=== PATIENT | female | born 1995 | race Hispanic/Latino ===

== ENCOUNTER 2017-12-22 13:34 | Outpatient (CLI) | payer MEDICAID | END 2017-12-22 13:35 | disposition home or self-care (01) | LOC: BICULT 13:34 | PROVIDERS: ATTEND Nurse Practitioner Women's Health | DX: R10.2 Pelvic and perineal pain (principal); R58 Hemorrhage, not elsewhere classified | CPT/HCPCS: 76856 ==

== ENCOUNTER 2018-06-18 22:06 | Emergency (ER) | payer MEDICAID, SELFPAY ==
[2018-06-18] MEDS ORDERED: Acetaminophen 500 MG TAB ONE (22:26)
[2018-06-18 22:41] LABS: #Basophils 0.1 thou/uL (0.0-0.2); #Eosinphils 0.2 thou/uL (0.0-0.7); #Lymphocytes 2.7 thou/uL (1.20-3.40); #Monocytes 0.6 thou/uL (0.11-0.59); %Basophils 0.6 % (0.0-1.0); %Eosinophils 2.1 % (0.0-10.0); %Lymphocytes 28.5 % (21.0-51.0); %Monocytes 6.4 % (0.0-10.0); %Neutrophils 62.5 % (42.0-75.0); Hemoglobin 13.3 g/dL (12.0-16.0); Mean Corpuscular HGB CONC 33.6 g/dL (32.0-36.0); Mean Corpuscular Hemoglobin 29.4 pg (27.0-31.0); Mean Corpuscular Volume 87.6 fL (78.0-98.0); Mean Platelet Volume 6.5 fL (7.4-10.4); Platelet Count 359 thou/uL (130-400); RBC Distribution Width 13.4 % (11.5-14.5); Red Blood Cell (RBC) Count 4.52 mill/uL (4.20-5.40); White Blood Cell (WBC) Count 9.6 thou/uL (4.8-10.8)
[2018-06-18 23:07] LABS: Bilirubin Negative (Negative); Blood, Urine Trace (Negative); Clarity CLEAR (Clear); Glucose, Urine (Dipstick) Negative (Negative); Leukocyte Trace (Negative); Nitrite Negative (Negative); Protein, Urine (Dipstick) Negative (Neg-Trace); Specific Gravity, Urine 1.017 (1.002-1.036)
[2018-06-18 23:09] LABS: Bacteria/HPF Rare-Few HPF (None Seen); Hyaline Casts/LPF 0-3 HYALINE CAST LPF (0-3 Hyaline); Pathc Cast-AUWi Flag 0.29 (0-2.49); RBC/HPF 0-3 HPF (0-3)
--- NOTE | 2018-06-19 00:08 | ULT ---
PELVIC ULTRASOUND: HISTORY: Positive hCG. Cramping. TECHNIQUE: Multiple longitudinal and transverse images of an intrauterine are obtained using Multi-Her tz curvilinear endovaginal transducers. FINDINGS: Real-time, color-flow, and spectral wave-form Doppler analysis demonstrates a viable intrauterine pre gnancy. The uterus measures 7.9 x 5.0 x 5.6 cm. There is a gestational sac and pole seen. Cr own-rump length measures 8 mm, giving a gestational age of 6 weeks 5 days. Cardiac activity is confi rmed, measuring 126 beats per minute. The uterus is retroverted. No definite evidence of subchorion ic hemorrhage seen. Both ovaries are visualized with good flood flow. The right ovary measures 2.9 x 1.5 x 1.9 cm, and the ovary 3.6 x 2.0 x 3.2 cm IMPRESSION: A viable intrauterine with an estimated gestational age of 6 weeks 5 days and an estimated date of delivery of 02/06/2019. POS: KAYLAH
== END 2018-06-19 00:08 | disposition home or self-care (01) ==
LOC: ERS 22:06
DX: O99.89 Other specified diseases and conditions complicating pregnancy, childbirth and the puerperium (principal); R10.31 Right lower quadrant pain; Z3A.01 Less than 8 weeks gestation of pregnancy
CPT/HCPCS: 36415; 76856; 81003; 81015; 84702; 85025

== ENCOUNTER 2019-01-02 15:48 | Inpatient (IN) | payer MEDICAID, OTHER ==
[~2019-01-02 15:48] MED LIST: Bupivacaine HCl 0.5%/Epinephrine 1:200,000/PF 30 ml Vial ONE; Terbutaline Sulfate 1 MG/ML VIAL ONE
--- NOTE | 2019-01-02 16:03 | PDOC.LDHP ---
Labor and Delivery H&P Chief complaint: other (high blood pressure) HPI: 23 yo G1 at 35.0 weeks by 6.5 wk sono sent over from clinic for elevated blood pressures. Patient has history of chronic HTN saying her BPs usually range in 140s when she checks them. She does not take antihypertensives. At clinic today measured BPs were 170-180. She denies NIELSON, chest pain, lower extremity edema. Sometimes feels SOB. Denies VB/VD/LOF. Reports dec FM past few days. Current gestational age (weeks): 35 (35.0) Due date: 02/06/19 Dating criteria: first trimester ultrasound Grav: 1 Para: 0 Current complications: hypertension Past Medical History: likely undiagnosed cHTN Current medications: pre-emma vitamins Previous surgical history: none Allergies/Adverse Reactions: Allergies Allergy/AdvReac Type Severity Reaction Status Date / Time No Known Allergies Allergy Unverified 01/02/19 16:57 Social history: none - Physical Exam Abnormal vital signs: BPs >160/>90 General: NAD Heart: RRR Lungs: CTAB Abdomen: gravid - OB Labs Blood type: O RH: negative Antibody Screen: negative HIV: negative RPR: negative HEPSAg: negative GBS: unknown Rubella: immune Additional Labs: A1c 4.9 Quad screen negative - Plan Plan: admit to L&D -: induced hypertension -Severe range BPs in office and here -Labetalol 30 IM x1 now -start on procardia for cHTN -CBC, CMP, uric acid, urine pr/cr to r/o PreE -Labs from 08/2018 show baseline urine pr/cr of 0.14 -pending FHT -order BPP -monitor for severe range pressures -35.0 weeks -steroids x1 now in case of urgent delivery -two doses GBS unknown -will obtain GBS swab -if delivery indicated before results return, will start PCN ppx Discussed with Dr. Alexander
[2019-01-02 16:37] VITALS: BMI 52.2
[2019-01-02 16:40] LABS: #Eosinphils 0.1 thou/uL (0.0-0.7); #Lymphocytes 2.1 thou/uL (1.20-3.40); #Monocytes 0.6 thou/uL (0.11-0.59); #Neutrophils 8.4 thou/uL (1.40-6.50); %Eosinophils 0.9 % (0.0-10.0); %Lymphocytes 18.4 % (21.0-51.0); %Monocytes 5.4 % (0.0-10.0); %Neutrophils 75.3 % (42.0-75.0); Hemoglobin 12.3 g/dL (12.0-16.0); Mean Corpuscular Hemoglobin 30.5 pg (27.0-31.0); Mean Corpuscular Volume 87.1 fL (78.0-98.0); Platelet Count 276 thou/uL (130-400); Red Blood Cell (RBC) Count 4.03 mill/uL (4.20-5.40); White Blood Cell (WBC) Count 11.2 thou/uL (4.8-10.8)
[2019-01-02] MEDS ORDERED: Labetalol HCl 100 MG/20 ML VIAL SLOW IVP SCH (17:00)
[2019-01-02 17:06] LABS: ALT (SGPT) 8 U/L (8-55); AST (SGOT) 18 U/L (5-34); Albumin 3.3 g/dL (3.5-5.0); Alkaline Phosphatase 159 U/L (40-150); Anion Gap 12 mmol/L (10-20); BUN (Urea Nitrogen) 5 mg/dL (7.0-18.7); Bilirubin, Total 0.3 mg/dL (0.2-1.2); Calc. Creatinine Clearance 322 mL/min (70-130); Calcium 8.9 mg/dL (7.8-10.44); Carbon Dioxide 21 mmol/L (22-29); Chloride 109 mmol/L (98-107); Estimated GFR-MDRD Greater than 90; Globulin 3.3 g/dL (2.4-3.5); Glucose 73 mg/dL (70-105); Potassium 3.8 mmol/L (3.5-5.1); Protein, Total 6.6 g/dL (6.0-8.3); Sodium 138 mmol/L (136-145)
[2019-01-02] MEDS: Lactated Ringer's 1,000 ML IV SCH (17:10)
[2019-01-02] MEDS: Betamet Acet/Betamet Na Ph 30 MG/5 ML VIAL IM SCH (17:23)
[2019-01-02 17:36] LABS: Creatinine, Urine 20.88 mg/dL (47-110)
--- NOTE | 2019-01-02 17:50 | ULT ---
Limited OB ultrasound and biophysical profile. Multiple longitudinal and transverse images of an intrauterine is obtained using multIhertz curvilinear transducer. Real-time and color flow and spectral waveform Doppler analysis used to evaluate the fetus. Images demonstrate a viable intrauterine with the fetus in a cephalic presentation. The [place] is anterior. Cardiac activity is seen measuring 140 bpm. Biometrics: Biparietal diameter equals 81 mm equals 32 weeks 4 days Head circumference equals 309 mm equals 34 weeks 3 days Abdominal circumference equals 300 mm equals 34 weeks 0 days Femur length equals 66 mm equals 34 weeks 2 days Composite age equals 33 weeks 6 days with an estimated of delivery of 02/14/2019. Amniotic fluid index measures 11.8 cm. Biophysical profile: tone equals 2 breathing equals 2 movement equals 2 Amniotic fluid volume equals 2 Composite equals 8 out of 8. [place] IMPRESSION: Viable intrauterine with biophysical profile measuring 8 out of 8. Transcribed Date/Time: 01/02/2019 6:31 PM
--- NOTE | 2019-01-02 17:51 | ULT ---
Please see accompanying limited OB ultrasound dictation for biophysical profile. Transcribed Date/Time: 01/02/2019 6:32 PM
[2019-01-02] MEDS ORDERED: Ondansetron PF 4 MG/2 ML Vial IVP PRN (18:07)
[2019-01-02] MEDS ORDERED: NIFEdipine XL 30 MG TAB PO SCH (18:15)
[2019-01-02] MEDS ORDERED: hydrALAZINE 20 MG/ML VIAL SLOW IVP SCH (20:45)
--- NOTE | 2019-01-02 21:36 | PDOC.EVN ---
Event Note - Event Note Event Note: PT is a 23yo female with a dx of chtn early in this who presented with elevated blood pressures. Labs have all been negative. By history pt reports checking blood pressures at the store every couple weeks and they have always been in the 140s-150s systolic. Pt has no symptoms. DTR's are normal. BP have been repeatedly severe. PT has been given procardia xl 30mg , labetolol 20mg iv, and now hydralizine 10mg iv x1. PT given bmtz x1. IF blood pressures become severe again will start magnesium during 24hr urine collection. if difficult to control bp will start induction of labor.
[2019-01-02] MEDS ORDERED: Calcium Gluconate 4.6 MEQ in Sodium Chloride 0.9% 100 ML IVPB PRN (22:24)
[2019-01-02] MEDS ORDERED: Magnesium Sulfate 20 GM/WATER 500 ML BAG IVPB SCH (22:30)
[2019-01-03] MEDS ORDERED: hydrALAZINE 20 MG/ML VIAL SLOW IVP SCH ×2 (00:30→01:00)
[2019-01-03] MEDS ORDERED: Misoprostol 100 MCG TAB VAG SCH (03:00)
[2019-01-03] MEDS: Labetalol HCl 100 MG/20 ML VIAL SLOW IVP PRN ×2 (04:02→10:48)
[2019-01-03] MEDS ORDERED: Penicillin G Potassium 5 MILL.UNITS in Sodium Chloride 0.9% 100 ML IVPB SCH (04:15)
[2019-01-03] MEDS ORDERED: Fentanyl 4 mcg/Bup 0.1% Cadd 100 ML ONE ×3 (04:24→18:56)
[2019-01-03] MEDS ORDERED: diphenhydrAMINE 50 MG/ML VIAL IVP PRN (05:14)
[2019-01-03] MEDS ORDERED: Eucerin (Mineral Oil/Petrolatum,White) 30 gm Jar TOP PRN (05:14)
[2019-01-03] MEDS ORDERED: Ondansetron PF 4 MG/2 ML Vial IVP PRN (05:14)
[2019-01-03] MEDS ORDERED: ePHEDrine/0.9% NaCl/PF SYRINGE 50 mg/10 ml SLOW IVP PRN (05:14)
[2019-01-03] MEDS ORDERED: Promethazine HCl 25 MG/ML VIAL IM PRN (05:14)
[2019-01-03] MEDS ORDERED: Lactated Ringer's 500 ML IV PRN (05:14)
[2019-01-03] MEDS ORDERED: Naloxone HCl 0.4 mg/ml Vial IVP PRN ×2 (05:14)
[2019-01-03] MEDS ORDERED: Acetaminophen 325 MG TAB PO PRN (05:14)
[2019-01-03] MEDS ORDERED: Communication Order-Pharmacy FS SCH (05:15)
[2019-01-03] MEDS: Lactated Ringer's 1,000 ML IV SCH (05:27)
--- NOTE | 2019-01-03 07:23 | PDOC.EVN ---
Event Note - Event Note Event Note: Pt persisted in severe range pressures. controlled now with labetolol iv prn and procardia xl 30mg po qday. Pt undergoing iol with cytotec. She srom over night, currently is 3/100/-1 station. BP 130-140s/70s-80s this morning HR 80s, sat 100% RA. PE: NAD, with epidural. lungs clear. DTR brisk. A/P CHTN with or with our si preeclampsia 24hour urine protein pending. IOL with cytotec now SROM with epidural. Continue active management. PCN for GBS prophylaxis in place. Dr Mckeon is the on coming MD.
[2019-01-03] MEDS: Magnesium Sulfate 20 gm/500 ml 20 GM/500 ML BAG IVPB SCH ×2 (07:33→17:44)
[2019-01-03] MEDS: Pen G 2.5 MILL.UNITS/50 ML BAG IVPB SCH ×4 (08:36→21:43)
--- NOTE | 2019-01-03 08:55 | PDOC.EVN ---
Event Note - Event Note Event Note: 23 yo LAF at 35 weeks with chronic HTN, now SROM with active UC pattern. Received several doses of labetalol and hydralizine. Mg started. 1st dose steroids given. Labs were normal on admit. BPs now 140/70's. Last exam was 3 cm. Plan: watch labor progress and BPs, cont. Mg, pitocin augmentation if required.
--- NOTE | 2019-01-03 09:11 | PDOC.LDPN ---
Labor & Delivery Progress Note - Subjective Subjective: comfortable (IOL of preeclampsia superimposed on cHTN. She has been induced with cytotec X1 and has had adequate contractions since. Her BPs have been well controlled since received Procardia and several doses of Hydralazine and Labetalol. She has received IV magnesium and has been diuresing well, between 80-100 mL/hr. She has received steroids. She has received Pen G due to and unknown GBS status. She has no complaints at this time. She SROM'd overnight and now has IUPC in place as well as epidural. Denies chest pain, dyspnea, fever, chills, pain. ) - Objective Vital signs reviewed and normal: yes General: NAD (Lungs: CTAB, no wheezes, rales, rhonchi), resting, breathing through contractions, other (Cardiac: RRR, no murmurs, gallops) Uterine fundus: non tender (Neuro: Brisks reflexes b/l, 3+) SVE: E[place] Dilation: 3 Effacement: 100% Station: -1 FHT: category 1 (baseline 125, mod variability, accels present, no decels) [place] contractions every: 2-3 min IUPC placed: yes - Assessment (1) Pre-eclampsia superimposed on chronic hypertension Code(s): O11.9 - PRE-EXISTING HYPERTENSION WITH PRE-ECLAMPSIA, UNSP TRIMESTER Current Visit: Yes Status: Acute (2) Intrauterine Code(s): Z34.90 - ENCNTR FOR SUPRVSN OF NORMAL , UNSP, UNSP TRIMESTER Current Visit: Yes Status: Acute (3) GBS unknown Current Visit: Yes Status: Acute Plan: continue plan of care -: 1) Preeclampsia superimposed on chronic hypertension - Continue procardia with prn IV antihypertensives - IOL with cytotec X1 started overnight due to recurrent severe range pressures - 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 Thapa. I agree with the Assessment and Plan documented above.
[2019-01-03] MEDS: NIFEdipine XL 30 MG TAB PO SCH (09:30)
[2019-01-03] MEDS ORDERED: NS w/ Oxytocin 10 units 500 ML ONE (10:09)
[2019-01-03] MEDS ORDERED: NS w/ Oxytocin 10 units 500 ML IV SCH (10:30)
[2019-01-03] MEDS: Labetalol HCl 100 MG/20 ML VIAL SLOW IVP SCH ×2 (11:12→17:33)
[2019-01-03] MEDS: Fentanyl 4 mcg/Bupivacaine 0.1% Cassette 100 ML EPIDURAL SCH ×2 (11:33→19:17)
--- NOTE | 2019-01-03 11:58 | PDOC.EVN ---
Event Note - Event Note Event Note: CTSP for decel to 80's x 2. Pitocin turned off. SVE 2-3/90/-1, FSE and IUPC in place. Multiple UCs seen. Terbutaline . 25 SQ given, Fhts resolving. Plan: watch closely, restart pitocin.
--- NOTE | 2019-01-03 13:28 | PDOC.LDPN ---
Labor & Delivery Progress Note - Subjective Subjective: comfortable (Since previous exam, patient was started on pitocin due to development of inadequate contractions and no cervical change. Patient developed a deceleration down to 70s-80s so pitocin was held for a time. FHTs became Cat I quickly thereafter. Pitocin has been re-initiated. Contractions are seen every 5-7 min. MVUs adequate. FSE and IUPC in place. Patient denies any complaints. Denies fever, chills, chest pain, dyspnea. ) - Objective Vital signs reviewed and normal: yes Abnormal vital signs: BPs have been ranging from 130s-150s systolic General: NAD (Lungs: CTAB, no wheezes, rales, rhonchi), resting, breathing through contractions, other (Cardiac: RRR, no murmurs, rubs, gallops, Lungs: CTAB, no wheezes, rales, rhonchi, Neuro: DTRs 3+) Uterine fundus: non tender FHT: category 1 (baseline 120, mod variability, accels presents, no decels ) [place] contractions every: q5-7 min IUPC placed: yes FSE placed: yes - Assessment (1) Pre-eclampsia superimposed on chronic hypertension Code(s): O11.9 - PRE-EXISTING HYPERTENSION WITH PRE-ECLAMPSIA, UNSP TRIMESTER Current Visit: Yes Status: Acute (2) Intrauterine Code(s): Z34.90 - ENCNTR FOR SUPRVSN OF NORMAL , UNSP, UNSP TRIMESTER Current Visit: Yes Status: Acute (3) GBS unknown Current Visit: Yes Status: Acute Plan: continue plan of care, pitocin for augmentation -: 1) Preeclampsia superimposed on chronic hypertension - Continue procardia 30 mg daily with prn IV antihypertensives available for severe range pressures - IOL with cytotec X1 started overnight due to recurrent severe range pressures - 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 Thapa. I agree with the Assessment and Plan documented above.
--- NOTE | 2019-01-03 14:44 | PDOC.LDPN ---
Labor & Delivery Progress Note - Subjective Subjective: comfortable - Objective Vital signs reviewed and normal: yes Abnormal vital signs: BPs have ranged from 127/82-151/81 General: NAD, resting, breathing through contractions Uterine fundus: non tender SVE: Elier Dilation: 3 Effacement: 100% Station: -2 FHT: category 1 (Baseline 120, mod isela, accels present, no decels, MVUs 210-275) [place] contractions every: 2-5 min IUPC placed: yes FSE placed: yes - Assessment (1) Pre-eclampsia superimposed on chronic hypertension Code(s): O11.9 - PRE-EXISTING HYPERTENSION WITH PRE-ECLAMPSIA, UNSP TRIMESTER Current Visit: Yes Status: Acute (2) Intrauterine Code(s): Z34.90 - ENCNTR FOR SUPRVSN OF NORMAL , UNSP, UNSP TRIMESTER Current Visit: Yes Status: Acute (3) GBS unknown Current Visit: Yes Status: Acute Plan: continue plan of care, pitocin for augmentation, other (maternal position change) -: 1) Preeclampsia superimposed on chronic hypertension - Continue procardia 30 mg daily with prn IV antihypertensives available for severe range pressures - IOL with cytotec X1 started overnight due to recurrent severe range pressures - 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 Thapa. I agree with the Assessment and Plan documented above.
--- NOTE | 2019-01-03 17:02 | PDOC.LDPN ---
Labor & Delivery Progress Note - Subjective Subjective: comfortable (Seen for labor check and mag check. Pt has no complaints. Labor currently being augmented with pitocin, titrating cautiously. Urine output is adequate. BPs have been controlled. ) - Objective Vital signs reviewed and normal: yes Abnormal vital signs: BP range: 127/83-151/81 General: NAD, resting, breathing through contractions Uterine fundus: non tender SVE: Elier Dilation: 3 Effacement: 100% Station: -2 FHT: category 1 (Baseline 125, mod variability, accels present, no decels, MVU range: 120-245) [place] contractions every: 5-7 min IUPC placed: yes FSE placed: yes - Assessment (1) Pre-eclampsia superimposed on chronic hypertension Code(s): O11.9 - PRE-EXISTING HYPERTENSION WITH PRE-ECLAMPSIA, UNSP TRIMESTER Current Visit: Yes Status: Acute (2) Intrauterine Code(s): Z34.90 - ENCNTR FOR SUPRVSN OF NORMAL , UNSP, UNSP TRIMESTER Current Visit: Yes Status: Acute (3) GBS unknown Current Visit: Yes Status: Acute Plan: continue plan of care, pitocin for augmentation -: 1) Preeclampsia superimposed on chronic hypertension - Continue procardia 30 mg daily with prn IV antihypertensives available for severe range pressures - IOL with cytotec X1 started overnight due to recurrent severe range pressures - 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 Thapa. I agree with the Assessment and Plan documented above.
[2019-01-03] MEDS: Betamet Acet/Betamet Na Ph 30 MG/5 ML VIAL IM SCH (17:46)
--- NOTE | 2019-01-03 20:14 | PDOC.LDPN ---
Labor & Delivery Progress Note - Subjective Subjective: comfortable, no concerns - Objective Vital signs reviewed and normal: yes (Latest BP 151/81) General: NAD, resting Uterine fundus: tender to palpation SVE: 3/100/-2 Dilation: 3 Effacement: 100% Station: -2 FHT: category 1 (Baseline 120, accels present, no decels, ), variability present IUPC placed: yes FSE placed: yes Plan: continue plan of care, pitocin for augmentation -: Preeclampsia superimposed on chronic hypertension -Continue procardia with PRN BP meds -Pit at 14 currently -SROM at 0300 01/03, 2100 is 18 hours -Adequate MVU, >200, continue to monitor -Mag sulfate given, urine output adequate -Continue Pit -Pt has been informed the possibility of C section IUP -Steroids given GBS un known -Pen G x3 given Rh negative -Ab positive 2/2 previous rhogam injection Addendum - Attending - Attending Attestation Date/Time: 01/04/19 0039 I personally evaluated the patient and discussed the management with Dr. Hinojosa. I agree with the Assessment and Plan documented above.
--- NOTE | 2019-01-03 22:18 | PDOC.LDPN ---
Labor & Delivery Progress Note - Subjective Subjective: comfortable - Objective Vital signs reviewed and normal: yes General: NAD Dilation: 5 Effacement: 100% Station: 0 FHT: category 2, variable decelerations, variability present -: Preeclampsia superimposed on chronic hypertension -Continue procardia with PRN BP meds -Pit at 16 -SROM at 0300 01/03 -Adequate MVU, >200, continue to monitor -Mag sulfate given, urine output adequate -Pt has been informed the possibility of C section, as she is now making progress and baby has good variability and accels will let her continue to labor and re-check in 2 hours IUP -Steroids given x2 GBS unknown -Pen G x3 given Rh negative -Ab positive 2/2 previous rhogam injection Morbid Obesity Addendum - Attending - Attending Attestation Date/Time: 01/04/19 0040 I personally evaluated the patient and discussed the management with Dr. Hinojosa. I agree with the Assessment and Plan documented above.
[2019-01-04] MEDS ORDERED: Fentanyl 4 mcg/Bup 0.1% Cadd 100 ML ONE (00:50)
[2019-01-04] MEDS: Fentanyl 4 mcg/Bupivacaine 0.1% Cassette 100 ML EPIDURAL SCH (00:53)
--- NOTE | 2019-01-04 01:11 | PDOC.LDPN ---
Labor & Delivery Progress Note - Subjective Subjective: comfortable, no concerns - Objective Vital signs reviewed and normal: yes (BPs are improved, no severe range pressures) General: NAD, resting Uterine fundus: non tender SVE: 6/100/0 Effacement: 100% Station: 0 FHT: category 1 (Baseline 120s, accels present, no decells) IUPC placed: yes FSE placed: yes Plan: continue plan of care, resuscitative measures -: Preeclampsia superimposed on chronic hypertension -Continue procardia with PRN BP meds -Pit at 16 currently -SROM at 0300 01/03, 2100 is 18 hours -Adequate MVU, >200, continue to monitor -Mag sulfate given, urine output adequate -Continue Pit -Pt has been informed the possibility of C section, however, pt is making change and for the meantime, the plan is to continue laboring IUP -Steroids given GBS un known -Pen G x4 given Rh negative -Ab positive 2/2 previous rhogam injection Addendum - Attending - Attending Attestation Date/Time: 01/04/19 6540 I personally evaluated the patient and discussed the management with Dr. Hinojosa. I agree with the Assessment and Plan documented above.
[2019-01-04] MEDS: Pen G 2.5 MILL.UNITS/50 ML BAG IVPB SCH (01:56)
[2019-01-04] MEDS ORDERED: Lidocaine 1% (PF) 30 ML VIAL ONE (03:45)
[2019-01-04] MEDS ORDERED: Lidocaine 1% (PF) 30 ML VIAL SC PRN (03:47)
[2019-01-04] MEDS: Magnesium Sulfate 20 gm/500 ml 20 GM/500 ML BAG IVPB SCH ×2 (03:47→14:23)
[2019-01-04] MEDS ORDERED: Misoprostol 200 MCG TAB ONE (03:54)
[2019-01-04] MEDS ORDERED: Carboprost 250 MCG/ML AMP ONE (03:55)
[2019-01-04 04:55] LABS: Actual Bicarbonate (HCO3a) 19.2 mEq/L (22-28); Base Excess (BEa) -11.1 mEq/L (-2.0 to +3.0)
[2019-01-04] MEDS: NS / Oxytocin 40 units/1000ml 1,000 ML IV PRN ×2 (04:57→06:02)
[2019-01-04 04:59] LABS: Actual Bicarbonate (HCO3v) 19 mEq/L (22-28)
[2019-01-04 05:03] LABS: pH (Cord, venous) 7.17 (7.32-7.43)
[2019-01-04] MEDS ORDERED: Calcium Gluconate 4.6 MEQ in Sodium Chloride 0.9% 100 ML IVPB PRN (05:08)
[2019-01-04] MEDS ORDERED: Bisacodyl 10 MG SUPP PR PRN (05:08)
[2019-01-04] MEDS ORDERED: Milk Of Magnesia 30 ML UDCUP PO PRN (05:08)
[2019-01-04] MEDS ORDERED: Adacel (T-DAP) 0.5 ML SYRINGE IM ONE (05:08)
[2019-01-04] MEDS ORDERED: Lanolin Ointment 7 GM TUBE TOP PRN (05:08)
[2019-01-04] MEDS ORDERED: NS / Oxytocin 40 units/1000ml 1,000 ML IV SCH (05:15)
--- NOTE | 2019-01-04 05:37 | PDOC.OP ---
Operative Note - Operative Note Operative Note: Vaginal Delivery, Vacuum-assisted Delivering Physician: Gennaro Ricks MD Attending: Levi Mckeon Procedure: Vaginal Delivery, Vacuum Assisted Anesthesia: epidural QBL: 686 ml Pre-op Diagnosis: 1. Pre-Term intrauterine , 35 weeks 2. pre-eclampsia superimposed on cHTN, severe range pressures 3. morbid obesity, BMI 52 4. GBS unknown, Rh negative 5. Prolonged rupture of membranes Post-op Diagnosis: 1. Pre-Term intrauterine , 35 weeks 2. pre-eclampsia superimposed on cHTN, severe range pressures 3. morbid obesity, BMI 52 4. GBS unknown, Rh negative 5. Prolonged rupture of membranes Indications: A 23y/o female presents for evaluation of severe range pressures. Determined to be pre-eclampsia superimposed on cHTN. Delivery Note: This is 23yo F @ 35.2wks who delivered a viable M at 0430 on 01/04/19. Patient was induced 2/2 to above. Patient had SROM 25 hours prior to delivery thus having prolonged rupture of membranes. 2nd phase of labor was complicated by maternal exhaustion and recurrent late decelerations. Vacuum-delivery: Thus a mushroom cup vacuum was applied with care to avoid maternal tissue. The cup was applied between the fontanelles with care to avoid either the anterior or posterior fontanelles. Infant was at the +3 position at time of application. Pressure was increased to 40 at max with contraction. There was one pop-off. Constant pressure was applied over 2 contractions which achieved delivery. A vigorous male was delivered over an intact perineum in the occipitoanterior position. Anterior Shoulder and then remainder of the body delivered. No nuchal cord. The head was held down and mouth and nares were bulb suctioned. Cord clamped quickly as appeared stunned. was quickly transferred to awaiting nursery team. Placenta delivered intact [place] presentation with a 3 vessel cord noted. Fundal massage was performed and the fundus was firm. The cervix and vagina were inspected and found to have right sidewall superficial lac. Laceration was repaired with 3-0 chromic in a running-locking fashion and found to be hemostatic. Infant went to nursery in good condition for routine care. weight was 2127g. Apgars were 8/9 at 1 & 5 minutes, respectively. Patient tolerated delivery well and went to after routine recovery/care. Present to attend this delivery. VE placed for decels and maternal exhaustion. Right sidewall laceration repaired with 2-0 chromic. To recover in L&D with Mg x 24 hrs.
[2019-01-04] MEDS: Labetalol HCl 100 MG/20 ML VIAL SLOW IVP SCH ×2 (07:22→09:20)
--- NOTE | 2019-01-04 08:21 | PDOC.PP ---
Post Progress Note Post Day #: 1 Subjective: Lou Gregorio is a 23 year old G1 now P1 who delivered viable M at 35.5 wks via vacuum assisted vaginal delivery. 2nd phase of labor was complicated by maternal exhaustion and recurrent late decels requiring use of vacuum. She had a right superficial right side wall lac that was repaired with adequate hemostasis. She is GBS unknown, adequately treated with Pen G. She had prolonged rupture of membranes, SROM'd 25 hours prior to delivery. QBL was 686 mL. Her was also complicated by preE superimposed on cHTN, requiring IV mag and induction. She continues on Mag at this time for a total of 24 hours after delivery. Patient is doing well this morning, she has no complaints , her pain is well controlled. She notes mild vaginal bleeding, similar to a period. She denies any fever, chills, chest pain, dyspnea. Her Urine Output has been ranging from 85-100 ml/hr. PO intake tolerated: yes Flatus: no Ambulation: no Vital Signs (12 hours) Temp Pulse Resp BP BP 01/04/19 07:22 72 165/87 H 01/04/19 06:29 98.9 F 72 18 151/80 H 01/04/19 05:08 98.9 F 80 18 128/80 01/04/19 02:38 98.5 F 84 18 151/84 H 01/03/19 22:00 97.8 F Weight Weight 146.964 kg - Physical Examination General: NAD Cardiovascular: no m/r/g, RRR Respiratory: clear to auscultation bilaterally, non-labored breathing Abdominal: + bowel sounds, lochia, no distention, appropriately TTP Neurological: no gross focal deficits Deviation from normal: brisk 3+ DTRs Psychiatric: A&Ox3, normal affect Result Diagrams: 01/05/19 06:16 01/02/19 16:27 Additional Labs: Post Labs Blood Type O NEGATIVE 01/02/19 18:55 (1) Pre-eclampsia superimposed on chronic hypertension Code(s): O11.9 - PRE-EXISTING HYPERTENSION WITH PRE-ECLAMPSIA, UNSP TRIMESTER Status: Acute (2) Intrauterine Code(s): Z34.90 - ENCNTR FOR SUPRVSN OF NORMAL , UNSP, UNSP TRIMESTER Status: Resolved (3) GBS unknown Status: Acute (4) delivery after induction of labor Code(s): O60.10X0 - LABOR W DELIVERY, UNSP TRIMESTER, UNSP Status: Acute (5) Vacuum extraction, delivered, current hospitalization Code(s): O66.5 - ATTEMPTED APPLICATION OF VACUUM EXTRACTOR AND FORCEPS Status : Acute (6) Prolonged rupture of membranes, greater than 24 hours, delivered Code(s): O42.10 - LEIF ROM, ONSET LABOR > 24 HR FOL RUPT, UNSP WEEKS OF GEST Status: Acute (7) Morbid obesity with BMI of 50.0-59.9, adult Code(s): E66.01 - MORBID (SEVERE) OBESITY DUE TO EXCESS CALORIES; Z68.43 - BODY MASS INDEX (BMI) 50-59.9, ADULT Status: Acute - Assessment/Plan 1) Pre-term intrauterine , 35.5 wks, delivered: - Continue routine post care - pain control with tylenol - right superficial side wall lac s/p repair with adequate hemostasis - mother plans to attempt - monitor for vaginal bleeding - GBS unknown s/p adequate treatment with Pen G, monitor for s/s of infection 2) Pre-Eclampsia superimposed on cHTN, severe range pressures - will continue Mag for 24 hours from time of delivery, 0430 on 01/04/19 - repeat Mag checks q4h - Urine output adequate, currently 85-100 mL/hr 3) Prolonged rupture of membranes - GBS unknown, adequately treated - continue to monitor for s/s infection 4) Morbid Obesity 5) GBS unknown - adequately treated Addendum - Attending - Attending Attestation Date/Time: 01/05/19 0750 I personally evaluated the patient and discussed the management with Dr. Thapa I agree with the History, Examination, Assessment and Plan documented above with any addition or exceptions noted below. Vitals signs reviewed. Pt has no complaints. On magnesium for sz prophylaxis. will continue until 24hr pp.
[2019-01-04] MEDS ORDERED: Labetalol HCl 100 MG/20 ML VIAL SLOW IVP SCH (08:45)
[2019-01-04] MEDS: NIFEdipine XL 30 MG TAB PO SCH (09:41)
[2019-01-04] MEDS: Ibuprofen 800 MG TAB PO SCH ×2 (09:42→18:42)
[2019-01-04] MEDS: Acetaminophen 325 MG TAB PO SCH ×5 (09:43→22:13)
[2019-01-04] MEDS: Ferrous Sulfate 325 MG TAB PO SCH (09:44)
[2019-01-04] MEDS: Docusate Calcium (SURFAK) 240 MG CAP PO SCH ×2 (09:44→22:13)
--- NOTE | 2019-01-04 12:54 | PDOC.EVN ---
Event Note - Event Note Event Note: Mag Check S: Lou Gregorio is a 23 year old G1 now P1 who delivered viable M at 35.5 wks via vacuum assisted vaginal delivery. was complicated by preeclampsia on cHTN and prolonged ROM. She is on magnesium at this time until we are 24 hours s/p delivery. She denies any complaints. Her BPs have ranged from 113/59 to 152/77. She denies any fever, chills, chest pain, dyspnea. Urine output continues to be adequate at 85-100 mL/hr. O: Vitals: WNL BP range 113/59-152/77, no severe range pressures this morning Cardiac: RRR, no murmurs, rubs, gallops Lungs: CTAB no wheezes, rales, rhonchi Ext: no pitting edema Neuro: Brisk 2-3+ DTRs A/P: 1) Pre-term intrauterine , 35.5 wks, delivered: - Continue routine post care - pain control with tylenol - right superficial side wall lac s/p repair with adequate hemostasis - mother plans to attempt - monitor for vaginal bleeding - GBS unknown s/p adequate treatment with Pen G, monitor for s/s of infection 2) Pre-Eclampsia superimposed on cHTN, severe range pressures - will continue Mag for 24 hours from time of delivery, 0430 on 01/04/19 - repeat Mag checks q4h - Urine output adequate, currently 85-100 mL/hr 3) Prolonged rupture of membranes - GBS unknown, adequately treated - continue to monitor for s/s infection 4) Morbid Obesity 5) GBS unknown - adequately treated
--- NOTE | 2019-01-04 16:45 | PDOC.EVN ---
Event Note - Event Note Event Note: Mag Check S: Lou Gregorio is a 23 year old G1 now P1 who delivered viable M at 35.5 wks via vacuum assisted vaginal delivery. was complicated by preeclampsia on cHTN and prolonged ROM. She is on magnesium at this time until we are 24 hours s/p delivery. She denies any complaints since her previous check. Her BPs have ranged from 121/73 to 139/75. She denies any fever, chills , chest pain, dyspnea. Urine output continues to be adequate at 80-100 mL/hr. O: Vitals: WNL BP range 121/73-139/75, no severe range pressures this afternoon Cardiac: RRR, no murmurs, rubs, gallops Lungs: CTAB no wheezes, rales, rhonchi Ext: no pitting edema Neuro: Brisk 2-3+ DTRs A/P: 1) Pre-term intrauterine , 35.5 wks, delivered: - Continue routine post care - pain control with tylenol - right superficial side wall lac s/p repair with adequate hemostasis - mother plans to attempt - monitor for vaginal bleeding - GBS unknown s/p adequate treatment with Pen G, monitor for s/s of infection - patient's vitals have been stable and wnl 2) Pre-Eclampsia superimposed on cHTN, severe range pressures - will continue Mag for 24 hours from time of delivery, 0430 on 01/04/19 - repeat Mag checks q4h - Urine output adequate, currently 80-100 mL/hr 3) Prolonged rupture of membranes - GBS unknown, adequately treated - continue to monitor for s/s infection 4) Morbid Obesity 5) GBS unknown - adequately treated
--- NOTE | 2019-01-04 21:03 | PDOC.EVN ---
Event Note - Event Note Event Note: Mag check S: Pt states she is doing well at this time. She complains of only mild cramping. She denies SOB, chest pain, headaches, or vision changes. O: Vitas WNL BP range 131-66 to 138/75, with no severe range pressures Cardiac: RRR, no murmurs Lungs: CTAB, no adventitious sounds Ext: No pitting edema Neuro: DTRs 2/4 globally A/P 1. Pre-term IUP, 35.5 delivered -Continue routine post care -Prolonged ruptured membranes, monitor for signs of infection 2. Pre-eclampsia superimposed on cHTN, severe range pressures -Continue mag until 0430 01/05/19 -Plan to move to floor after mag is completed -Continue q4hr mag checks -Urine output adequate, 175ml/hr at last check
[2019-01-05 06:28] LABS: Hemoglobin 9.3 g/dL (12.0-16.0); Mean Corpuscular HGB CONC 35.2 g/dL (32.0-36.0); Mean Corpuscular Hemoglobin 31.9 pg (27.0-31.0); Mean Corpuscular Volume 90.5 fL (78.0-98.0); Mean Platelet Volume 6.9 fL (7.4-10.4); Platelet Count 240 thou/uL (130-400); RBC Distribution Width 14.4 % (11.5-14.5); Red Blood Cell (RBC) Count 2.92 mill/uL (4.20-5.40); White Blood Cell (WBC) Count 10.5 thou/uL (4.8-10.8)
--- NOTE | 2019-01-05 07:25 | PDOC.PP ---
Post Progress Note Post Day #: 1 Subjective: Feels well, walked to restroom, less bleeding than a period, minimal cramping, no leg pain, No NIELSON, scotoma, sob, or swelling PO intake tolerated: yes Flatus: yes Ambulation: yes Vital Signs (12 hours) Temp Pulse Resp BP 01/05/19 01:00 98.0 F 78 16 125/70 01/04/19 22:56 98.5 F 78 16 135/66 01/04/19 21:00 98.5 F 89 16 138/75 Weight Weight 146.964 kg - Physical Examination General: NAD Cardiovascular: no m/r/g, RRR Respiratory: clear to auscultation bilaterally, non-labored breathing Abdominal: + bowel sounds, no distention Extremities: negative homans (B) Neurological: no gross focal deficits Psychiatric: A&Ox3, normal affect Result Diagrams: 01/05/19 06:16 01/02/19 16:27 Additional Labs: Post Labs Blood Type O NEGATIVE 01/02/19 18:55 (1) Morbid obesity with BMI of 50.0-59.9, adult Code(s): E66.01 - MORBID (SEVERE) OBESITY DUE TO EXCESS CALORIES; Z68.43 - BODY MASS INDEX (BMI) 50-59.9, ADULT Status: Acute (2) delivery after induction of labor Code(s): O60.10X0 - LABOR W DELIVERY, UNSP TRIMESTER, UNSP Status: Acute (3) Vacuum extraction, delivered, current hospitalization Code(s): O66.5 - ATTEMPTED APPLICATION OF VACUUM EXTRACTOR AND FORCEPS Status : Acute - Assessment/Plan 1. Pre-term IUP, PP day 1 -Continue routine post care -Prolonged ruptured membranes, afebrile thus far - consulted, wants circ for baby - PP control: progestin tabs 2. Pre-eclampsia superimposed on cHTN, severe range pressures -no sev range pressures or sxs 24 hours pp, will monitor for another 24 hours on PP
--- NOTE | 2019-01-05 07:35 | PRG ---
DATE OF SERVICE: 01/05/2019 SUBJECTIVE: The patient is a 23-year-old female, on day 1, status post a spontaneous vaginal delivery for chronic hypertension, superimposed preeclampsia with severe features. The patient is status post magnesium now for 24 hours. She continues to have mild range blood pressures. She reports that she is tolerating p.o., voiding on her own, having decreased lochia, and good pain control. OBJECTIVE: VITAL SIGNS: Most recent blood pressures have been 130/73, heart rate of 71, respiratory rate 18, and temperature 98.5. GENERAL: She appears to be in no acute distress. She is alert, oriented, cooperative, pleasant to interact with. HEENT: Head is normocephalic and atraumatic. : Fundus is difficult to assess due to habitus. EXTREMITIES: Nontender. DTRs are not elicited. LABORATORY DATA: Post delivery hemoglobin of 9.3, hematocrit 26.5, and platelets of 240,000. ASSESSMENT AND PLAN: The patient is day 1, status post a spontaneous vaginal delivery. The patient is off magnesium now and will be transferred to the floor for continued care. Anticipate discharge tomorrow if her blood pressures remain in the mild range. Job ID: [id number]
[2019-01-05] MEDS ORDERED: Bisacodyl 10 MG SUPP PR PRN (08:18)
[2019-01-05] MEDS ORDERED: Benzocaine-Menthol 82.5 ML CAN TOP PRN (08:18)
[2019-01-05] MEDS ORDERED: Lanolin Ointment 7 GM TUBE TOP PRN (08:18)
[2019-01-05] MEDS ORDERED: Adacel (T-DAP) 0.5 ML SYRINGE IM ONE (08:18)
[2019-01-05] MEDS ORDERED: NS / Oxytocin 40 units/1000ml 1,000 ML IV SCH (08:18)
[2019-01-05] MEDS ORDERED: Milk Of Magnesia 30 ML UDCUP PO PRN (08:18)
[2019-01-05] MEDS: Ferrous Sulfate 325 MG TAB PO SCH ×3 (10:04→16:45)
[2019-01-05] MEDS: Docusate Calcium (SURFAK) 240 MG CAP PO SCH ×2 (10:39→21:34)
[2019-01-05] MEDS: Ibuprofen 800 MG TAB PO SCH ×2 (12:56→21:34)
[2019-01-05] MEDS: Acetaminophen 325 MG TAB PO SCH (14:29)
[2019-01-05] MEDS ORDERED: Labetalol 100 MG TAB PO SCH (16:45)
[2019-01-05] MEDS ORDERED: Acetaminophen 500 MG TAB PO PRN (19:15)
[2019-01-06] MEDS ORDERED: Labetalol HCl 100 MG/20 ML VIAL SLOW IVP SCH (01:00)
[2019-01-06] MEDS: Ibuprofen 800 MG TAB PO SCH ×3 (06:22→21:59)
--- NOTE | 2019-01-06 07:44 | PDOC.PP ---
Post Progress Note Post Day #: 2 Subjective: Pt up and moving around. Pt reports lochia about the same as her period. Pt reports some LE swelling. Denies any headaches or vision changes. Denies any chest pain or SOB. Pt reports a little burning when peeing this morning. Tolerating PO. Denies any N/V. PO intake tolerated: yes Flatus: yes Ambulation: yes Vital Signs (12 hours) Temp Pulse Resp BP BP Pulse Ox 01/06/19 04:05 97.9 F 86 18 147/81 H 01/06/19 01:15 81 166/83 H 01/06/19 00:45 166/83 H 01/06/19 00:05 98.4 F 81 18 177/95 H 01/05/19 21:20 99 01/05/19 19:57 98.4 F 91 16 133/72 99 Weight Weight 146.964 kg - Physical Examination General: NAD Cardiovascular: no m/r/g, RRR Respiratory: clear to auscultation bilaterally, non-labored breathing Abdominal: + bowel sounds, lochia (Reports like normal period), no distention, appropriately TTP Fundus firm & at: below umbilicus Extremities: negative homans (B) Deviation from normal: Pt does have trace edema in LE bilaterally Neurological: no gross focal deficits Psychiatric: A&Ox3, normal affect Result Diagrams: 01/05/19 06:16 01/02/19 16:27 Additional Labs: Post Labs Blood Type O NEGATIVE 01/02/19 18:55 (1) Pre-eclampsia superimposed on chronic hypertension Code(s): O11.9 - PRE-EXISTING HYPERTENSION WITH PRE-ECLAMPSIA, UNSP TRIMESTER Status: Acute (2) delivery after induction of labor Code(s): O60.10X0 - LABOR W DELIVERY, UNSP TRIMESTER, UNSP Status: Acute (3) Vacuum extraction, delivered, current hospitalization Code(s): O66.5 - ATTEMPTED APPLICATION OF VACUUM EXTRACTOR AND FORCEPS Status : Acute - Assessment/Plan Pre-term intrauterine , 35.5 wks, delivered: - Continue routine post care - pain under control. Continue current regimen - right superficial side wall lac s/p repair with adequate hemostasis - mother . denies any issues at this time. - Lochia normal at this time. - GBS unknown s/p adequate treatment with Pen G, monitor for s/s of infection Pre-Eclampsia superimposed on cHTN, severe range pressures - Pt had 24 hours PP Mg tx. Pt had a few severe range pressures overnight last night. Gave IV labetolol and no severe range pressures since -Pt started on 100 mg Labetolol last night. Will watch pressures and possibly increase. Prolonged rupture of membranes - GBS positive. Adequately tx - continue to monitor for s/s infection Morbid Obesity GBS positive - adequately treated We will continue to monitor patients blood pressure today. As long as BP stays stable pt is stable for discharge.
--- NOTE | 2019-01-06 08:44 | PDOC.EVN ---
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 Dr Padilla has seen the patient and I will go eval after this AM. Patient is on labetolol 100mg po BID. I have requested we increase to 200 BID and give additioal IV dose of medication. Follow BPs after IV dose for urgent HTN. Redraw PIH labs to eval any progression.
[2019-01-06] MEDS ORDERED: Labetalol 100 MG TAB PO SCH (09:00)
[2019-01-06] MEDS ORDERED: Labetalol HCl 100 MG/20 ML VIAL SLOW IVP PRN (09:03)
[2019-01-06] MEDS: Labetalol HCl 100 MG/20 ML VIAL SLOW IVP SCH ×2 (09:08→17:05)
[2019-01-06] MEDS: Docusate Calcium (SURFAK) 240 MG CAP PO SCH ×2 (09:09→21:59)
[2019-01-06 09:48] LABS: #Eosinphils 0.2 thou/uL (0.0-0.7); #Lymphocytes 2.7 thou/uL (1.20-3.40); #Monocytes 0.6 thou/uL (0.11-0.59); #Neutrophils 7.1 thou/uL (1.40-6.50); %Basophils 0.4 % (0.0-1.0); %Eosinophils 1.7 % (0.0-10.0); %Lymphocytes 25.4 % (21.0-51.0); %Monocytes 5.8 % (0.0-10.0); %Neutrophils 66.7 % (42.0-75.0); Hemoglobin 10.2 g/dL (12.0-16.0); Mean Corpuscular HGB CONC 33.8 g/dL (32.0-36.0); Mean Corpuscular Hemoglobin 30.9 pg (27.0-31.0); Mean Corpuscular Volume 91.5 fL (78.0-98.0); Mean Platelet Volume 6.9 fL (7.4-10.4); Platelet Count 244 thou/uL (130-400); RBC Distribution Width 14.4 % (11.5-14.5); White Blood Cell (WBC) Count 10.7 thou/uL (4.8-10.8)
--- NOTE | 2019-01-06 09:48 | PDOC.EVN ---
Event Note - Event Note Event Note: Was notified by nursing that her IV had fallen out. We are unable to give IV labetolol at this time for severe range pressures. Will give increased 200 mg labetolol and continue checking BP. Nursing is working on getting another IV.
[2019-01-06] MEDS: Labetalol 100 MG TAB PO SCH ×2 (09:49→20:28)
[2019-01-06] MEDS: Ferrous Sulfate 325 MG TAB PO SCH ×2 (09:50→17:24)
[2019-01-06 09:57] LABS: ALT (SGPT) 9 U/L (8-55); AST (SGOT) 16 U/L (5-34); Albumin 3.3 g/dL (3.5-5.0); Alkaline Phosphatase 120 U/L (40-150); Anion Gap 14 mmol/L (10-20); BUN (Urea Nitrogen) 8 mg/dL (7.0-18.7); Bilirubin, Total 0.2 mg/dL (0.2-1.2); Calc. Creatinine Clearance 333 mL/min (70-130); Calcium 8.7 mg/dL (7.8-10.44); Carbon Dioxide 20 mmol/L (22-29); Chloride 112 mmol/L (98-107); Estimated GFR-MDRD Greater than 90; Globulin 3.1 g/dL (2.4-3.5); Glucose 74 mg/dL (70-105); Potassium 4.3 mmol/L (3.5-5.1); Protein, Total 6.4 g/dL (6.0-8.3); Sodium 142 mmol/L (136-145)
[2019-01-06 13:25] LABS: Creatinine, Urine 77.82 mg/dL (47-110)
--- NOTE | 2019-01-06 17:13 | PDOC.EVN ---
Event Note - Event Note Event Note: GISSELL quintanilla Time: 1710 Just notified by Resident that BP is 163/80. Resident front office medical assistant is on the way to see her. She is on labetolol 200mg po BID, adjusted this am I will assess after resident eval as well. I have ordered hydralazine 10mg SIVP x 1 now due to SBP value. If any NIELSON or other PIH related SXS, consider restart of mag Sulfate. [facility] labs were ok (except UP/CR ratio of .33).
[2019-01-06] MEDS ORDERED: hydrALAZINE 20 MG/ML VIAL SLOW IVP SCH (17:15)
[2019-01-06] MEDS ORDERED: NIFEdipine 10 MG CAP PO SCH ×2 (17:30→19:30)
--- NOTE | 2019-01-06 17:30 | PDOC.EVN ---
Event Note - Event Note Event Note: S: Evaluated pt after seeing SBP 163, pt is asymptomatic and has no complaints. No NIELSON/CP/SOB/edema/visual changes. no concerns at this time O: BP as stated above, HR wnl GEN: no distress CARD: RRR, no murmur PULM: CTAB, no distress Extremeties: no edema A/P: Will give procardia 10mg PO NOW as IV has fallen out again and IV was extremely difficult to obtain earlier today. Nursing instructed to check bp q20min for 1 hour and alert MD for any SBP > 160 so as to give 20mg more procardia up to max of 50mg. Faculty: Plan noted. Agreed and discussed
[2019-01-06] MEDS: NIFEdipine 10 MG CAP PO PRN ×2 (19:38→20:29)
--- NOTE | 2019-01-06 20:25 | PDOC.EVN ---
Event Note - Event Note Event Note: S: Evaluated pt during BP check after receiving 20mg PO procardia 20 minutes ago. Patient is asymptomatic and has no complaints. No NIELSON/CP/SOB/edema/visual changes. O: R arm BP 173/97 & L arm BP 172/94, HR wnl GEN: no distress CARD: RRR, no murmur PULM: CTAB, no distress Extremities: no edema A/P: Will give procardia 20mg PO & 200mg PO labetalol NOW since still no IV access after multiple attempts from multiple departments. Nursing instructed to check bp again in 20 min and alert MD with BP at that time. Case discussed with Dr. Sj Velasco who agrees with plan as described above. Faculty: case noted. Patient has recieved oral procardia 10mg, and 20mg, and 20mg for total of 50mg per protocol. last labetolol was at 2030 or so. I suspect will need to increase from 200 BID to 400 BID...but wait to see what occurs overnight
--- NOTE | 2019-01-06 23:18 | PDOC.EVN ---
Event Note - Event Note Event Note: Nurse paged to update on most recent BP. Patient is now s/p 50mg total or PO procardia and 200mg PO labetalol. Most recent BP check @ ~21:55 below treatment threshold at 149/84 with a HR of 89. Nursing instructed to check bp again in 4 hours and alert MD with BP at that time. Case discussed with Dr. Sj Velasco who agrees with plan as described above.
[2019-01-07] MEDS: Ibuprofen 800 MG TAB PO SCH ×3 (05:11→21:51)
[2019-01-07] MEDS ORDERED: Labetalol 100 MG TAB PO SCH (05:45)
[2019-01-07] MEDS ORDERED: Furosemide 20 MG/2 ML VIAL SLOW IVP SCH (06:00)
--- NOTE | 2019-01-07 06:04 | PDOC.PP ---
Post Progress Note Post Day #: 3 Subjective: Pt reports doing well this morning. Denies any acute events overnight. Denies any sx's at this time. Denies any vision changes, headaches. Denies any lightheadness or dizziness. Denies any chest pain or SOB. denies any N/V. Pt reports lochia like normal period. Pt does report some swelling in her LE. Denies any pain. Pt reports pain being well controlled with current regimen. Denies any fever or chills. PO intake tolerated: yes Flatus: yes Ambulation: yes Vital Signs (12 hours) Temp Pulse Resp BP BP Pulse Ox 01/07/19 04:48 98.2 F 71 18 130/73 01/07/19 00:48 98.0 F 85 18 134/77 01/06/19 21:55 89 149/84 H 01/06/19 20:52 81 146/91 H 01/06/19 20:28 76 172/94 H 01/06/19 20:11 172/94 H 01/06/19 20:10 97.7 F 76 18 173/97 H 97 01/06/19 19:15 81 168/92 H Weight Weight 146.964 kg - Physical Examination General: NAD Cardiovascular: no m/r/g, RRR Respiratory: clear to auscultation bilaterally, non-labored breathing Abdominal: + bowel sounds, lochia (Reports as normal period), no distention, appropriately TTP Fundus firm & at: below umbilicus Extremities: negative homans (B) (No redness.) Deviation from normal: +1 pitting edema noted in LE Perineum: Intact. No sign of bleeding or drainage. Neurological: no gross focal deficits Psychiatric: A&Ox3, normal affect Result Diagrams: 01/06/19 09:08 01/06/19 09:08 Additional Labs: Post Labs Blood Type O NEGATIVE 01/02/19 18:55 (1) Pre-eclampsia superimposed on chronic hypertension Code(s): O11.9 - PRE-EXISTING HYPERTENSION WITH PRE-ECLAMPSIA, UNSP TRIMESTER Status: Acute (2) delivery after induction of labor Code(s): O60.10X0 - LABOR W DELIVERY, UNSP TRIMESTER, UNSP Status: Acute (3) Vacuum extraction, delivered, current hospitalization Code(s): O66.5 - ATTEMPTED APPLICATION OF VACUUM EXTRACTOR AND FORCEPS Status : Acute - Assessment/Plan Pre-term intrauterine , 35.5 wks, delivered: - Continue routine post care - pain under control. Continue current regimen - right superficial side wall lac s/p repair with adequate hemostasis - mother . denies any issues at this time. - Lochia normal at this time. - GBS unknown s/p adequate treatment with Pen G, monitor for s/s of infection Pre-Eclampsia superimposed on cHTN, severe range pressures - Pt had 24 hours PP Mg tx. Pt had severe range pressures yesterday. We increased her labetolol to 200 mg BID and also had to give Procardia as well. No severe range pressures noted overnight. -Will increase labetolol to 400mg BID as she had multiple elevated pressures last night. Will continue to monitor throughout the day. -Pt having edema, will give 20 mg IV lasix. -Will watch pressures throughout the day. Due to multiple elevated pressures yesterday will likely need to stay for 24 hour monitoring until tmrw. . Prolonged rupture of membranes - GBS positive. Adequately tx - continue to monitor for s/s infection Morbid Obesity GBS positive - adequately treated FACULTY NOTE: I have seen and evaluated the patient. Ms Gregorio is PPD 3 today from vaccuum assist VD, HX CHTN. She still required a total of 50mg procardia yesterday so today we will increase LABETALOL to 400mg po BID. We will also give one dose of lasix (20mg) po X 1 this AM to reduce LE edema. Goal is home when BPs no longer require PRN urgent medications for 24 hours
[2019-01-07] MEDS: Ferrous Sulfate 325 MG TAB PO SCH ×2 (08:44→19:16)
[2019-01-07] MEDS: Docusate Calcium (SURFAK) 240 MG CAP PO SCH ×2 (08:45→21:51)
[2019-01-07] MEDS: Furosemide 20 MG TAB PO SCH (08:45)
[2019-01-07] MEDS ORDERED: Furosemide 20 MG TAB PO SCH (09:00)
[2019-01-07] MEDS: Labetalol 100 MG TAB PO SCH (22:02)
[2019-01-08] MEDS: Ibuprofen 800 MG TAB PO SCH (06:34)
--- NOTE | 2019-01-08 07:43 | PDOC.PP ---
Post Progress Note Post Day #: 4 Subjective: Lou Gregorio seen at bedside this morning. She is doing well, there were no acute events overnight and she has no complaints this morning. Her baby was discharged last night after a normal bilirubin was drawn. Her blood pressures have been under good control, ranging from the 130s-150s systolic. Her labetalol was increased to 400 po bid yesterday and she has been doing well with that. She denies any fever, chills, chest pain, dypsnea. Her pain is well controlled. Lochia is like a normal period or less now. PO intake tolerated: yes Flatus: yes Ambulation: yes Vital Signs (12 hours) Temp Pulse Resp BP BP Pulse Ox 01/08/19 04:44 98.1 F 71 18 140/86 01/07/19 23:52 98.1 F 69 18 133/83 01/07/19 22:02 75 150/83 H 01/07/19 20:02 97.9 F 75 18 150/83 H 100 Weight Weight 146.964 kg - Physical Examination General: NAD Cardiovascular: no m/r/g, RRR Respiratory: clear to auscultation bilaterally, non-labored breathing Abdominal: + bowel sounds, lochia, no distention, appropriately TTP Neurological: no gross focal deficits Psychiatric: A&Ox3, normal affect Result Diagrams: 01/06/19 09:08 01/06/19 09:08 Additional Labs: Post Labs Blood Type O NEGATIVE 01/02/19 18:55 (1) Pre-eclampsia superimposed on chronic hypertension Code(s): O11.9 - PRE-EXISTING HYPERTENSION WITH PRE-ECLAMPSIA, UNSP TRIMESTER Status: Acute (2) Intrauterine Code(s): Z34.90 - ENCNTR FOR SUPRVSN OF NORMAL , UNSP, UNSP TRIMESTER Status: Resolved (3) GBS unknown Status: Acute (4) delivery after induction of labor Code(s): O60.10X0 - LABOR W DELIVERY, UNSP TRIMESTER, UNSP Status: Acute (5) Vacuum extraction, delivered, current hospitalization Code(s): O66.5 - ATTEMPTED APPLICATION OF VACUUM EXTRACTOR AND FORCEPS Status : Acute (6) Prolonged rupture of membranes, greater than 24 hours, delivered Code(s): O42.10 - LEIF ROM, ONSET LABOR > 24 HR FOL RUPT, UNSP WEEKS OF GEST Status: Acute (7) Morbid obesity with BMI of 50.0-59.9, adult Code(s): E66.01 - MORBID (SEVERE) OBESITY DUE TO EXCESS CALORIES; Z68.43 - BODY MASS INDEX (BMI) 50-59.9, ADULT Status: Acute - Assessment/Plan Pre-term intrauterine , 35.5 wks, delivered: - Continue routine post care - pain under control. Continue current regimen - right superficial side wall lac s/p repair with adequate hemostasis - mother . denies any issues at this time. - Lochia normal at this time. - GBS unknown s/p adequate treatment with Pen G, no signs/symptoms of infection since delivery Pre-Eclampsia superimposed on cHTN, severe range pressures - Pt had 24 hours PP Mg tx. - Labetalol was increased to 400 mg BID due to elevated BPs on night of 01/06- . She has been doing well since that time. - She is ready for d/c today with close follow up - counseled on BP precautions, recommended that she monitor BP at home Prolonged rupture of membranes - GBS positive. Adequately tx - continue to monitor for s/s infection Morbid Obesity GBS positive - adequately treated
[2019-01-08 08:06] VITALS: BP 137/67; TEMP 97.8
[2019-01-08] MEDS: Labetalol 100 MG TAB PO SCH (09:19)
[2019-01-08] MEDS: Docusate Calcium (SURFAK) 240 MG CAP PO SCH (09:19)
[2019-01-08] MEDS: Furosemide 20 MG TAB PO SCH (09:19)
[2019-01-08] MEDS: Ferrous Sulfate 325 MG TAB PO SCH (09:20)
== END 2019-01-08 11:15 | disposition home or self-care (01) | DRG 807 ==
LOC: L&D/OP 15:48 → L&D 22:58 → 3SW 01-05 08:37
PROVIDERS: ADMIT Obstetrics & Gynecology; ATTEND Obstetrics & Gynecology
PROC: 10D07Z6 Extraction of Products of Conception, Vacuum, Via Natural or Artificial Opening (ICD-10-PCS; principal; 2019-01-04)
PROC: 3E033VJ Introduction of Other Hormone into Peripheral Vein, Percutaneous Approach (ICD-10-PCS; 2019-01-04)
PROC: 0UQGXZZ Repair Vagina, External Approach (ICD-10-PCS; 2019-01-04)
DX: O13.4 Gestational [pregnancy-induced] hypertension without significant proteinuria, complicating childbirth (principal); Z37.0 Single live birth; O60.14X0 Preterm labor third trimester with preterm delivery third trimester, not applicable or unspecified; O14.14 Severe pre-eclampsia complicating childbirth; O99.214 Obesity complicating childbirth; E66.01 Morbid (severe) obesity due to excess calories; O99.824 Streptococcus B carrier state complicating childbirth; Z3A.35 35 weeks gestation of pregnancy; O70.0 First degree perineal laceration during delivery; O42.913 Preterm premature rupture of membranes, unspecified as to length of time between rupture and onset of labor, third trimester
CPT/HCPCS: 36415; 51702; 76815; 76819; 80053; 81003; 82570; 82805; 83735; 84156; 84550; 85025; 85027; 85461; 86850; 86870; 86900; 86901; 87077; 87081; 88307; 90384; 96372; 99285; J0360; J0670; J0702; J2001; J2540; J2590; J3105; J3475; J3490

== ENCOUNTER 2019-09-16 16:25 | Emergency (ER) | payer OTHER, SELFPAY ==
[2019-09-16 17:10] LABS: #Eosinphils 0.2 thou/uL (0.0-0.7); #Lymphocytes 2.6 thou/uL (1.20-3.40); #Monocytes 0.5 thou/uL (0.11-0.59); #Neutrophils 5.8 thou/uL (1.40-6.50); %Basophils 0.1 % (0.0-1.0); %Eosinophils 2.1 % (0.0-10.0); %Lymphocytes 28.5 % (21.0-51.0); %Neutrophils 63.4 % (42.0-75.0); Hemoglobin 10.5 g/dL (12.0-16.0); Mean Corpuscular HGB CONC 33.1 g/dL (32.0-36.0); Mean Corpuscular Hemoglobin 27.7 pg (27.0-31.0); Mean Corpuscular Volume 83.7 fL (78.0-98.0); Mean Platelet Volume 6.4 fL (7.4-10.4); Platelet Count 433 thou/uL (130-400); RBC Distribution Width 13.4 % (11.5-14.5); Red Blood Cell (RBC) Count 3.78 mill/uL (4.20-5.40); White Blood Cell (WBC) Count 9.1 thou/uL (4.8-10.8)
[2019-09-16 17:15] LABS: Bacteria/HPF None Seen HPF (None Seen); Bilirubin Negative (Negative); Blood, Urine 2+ (Negative); Clarity Turbid (Clear); Glucose, Urine (Dipstick) Normal (Negative); Leukocyte 25 Leu/uL (Negative); Nitrite Negative (Negative); Protein, Urine (Dipstick) 50 mg/dL (Neg-Trace); RBC/HPF Greater than 50 HPF (0-3); Squamous Epithelial 0-3 HPF (0-3); WBC/HPF 0-3 HPF (0-3)
[2019-09-16 17:30] LABS: ALT (SGPT) 13 U/L (8-55); AST (SGOT) 18 U/L (5-34); Alkaline Phosphatase 106 U/L (40-110); Anion Gap 12 mmol/L (10-20); BUN (Urea Nitrogen) 7 mg/dL (7.0-18.7); Bilirubin, Total 0.4 mg/dL (0.2-1.2); Calc. Creatinine Clearance 0 mL/min (70-130); Calcium 8.8 mg/dL (7.8-10.44); Carbon Dioxide 25 mmol/L (22-29); Chloride 108 mmol/L (98-107); Estimated GFR-MDRD Greater than 90; Globulin 3.4 g/dL (2.4-3.5); Glucose 96 mg/dL (70-105); Protein, Total 7.4 g/dL (6.0-8.3); Sodium 141 mmol/L (136-145)
[2019-09-16 21:00] LABS: Pregnancy Test - Urine (BHCG) Negative (Negative); Pregu Control Background? CLEAR/WHITE (CLR/WHITE); Pregu Control Bar Appear? YES (CONTROL BAR); Specific Gravity 1.026 (1.002-1.036)
== END 2019-09-16 18:22 | disposition home or self-care (01) ==
LOC: ERS 16:25
DX: N92.0 Excessive and frequent menstruation with regular cycle (principal); I10 Essential (primary) hypertension
CPT/HCPCS: 36415; 80053; 81003; 81015; 81025; 85025; 86850; 86900; 86901; 99284

== ENCOUNTER 2021-03-19 19:22 | Emergency (ER) | payer SELFPAY ==
[2021-03-19 19:56] LABS: #Lymphocytes 1.6 thou/uL (1.20-3.40); #Monocytes 0.6 thou/uL (0.11-0.59); #Neutrophils 12.6 thou/uL (1.40-6.50); %Basophils 0.2 % (0.0-1.0); %Eosinophils 0.3 % (0.0-10.0); %Lymphocytes 10.6 % (21.0-51.0); %Neutrophils 84.9 % (42.0-75.0); Hemoglobin 11.3 g/dL (12.0-16.0); Mean Corpuscular HGB CONC 30.9 g/dL (32.0-36.0); Mean Corpuscular Hemoglobin 22.2 pg (27.0-31.0); Mean Corpuscular Volume 71.7 fL (78.0-98.0); Mean Platelet Volume 8.4 fL (7.4-10.4); Platelet Count 429 thou/uL (130-400); RBC Distribution Width 18.3 % (11.5-14.5); Red Blood Cell (RBC) Count 5.08 mill/uL (4.20-5.40); White Blood Cell (WBC) Count 14.8 thou/uL (4.8-10.8)
[2021-03-19 20:17] LABS: ALT (SGPT) 13 U/L (8-55); AST (SGOT) 17 U/L (5-34); Albumin 4.3 g/dL (3.5-5.0); Alkaline Phosphatase 112 U/L (40-110); Anion Gap 11 mmol/L (10-20); BUN (Urea Nitrogen) 7 mg/dL (7.0-18.7); Bilirubin, Total 0.7 mg/dL (0.2-1.2); Calc. Creatinine Clearance 0 mL/min (70-130); Calcium 9.3 mg/dL (7.8-10.44); Carbon Dioxide 24 mmol/L (22-29); Chloride 105 mmol/L (98-107); Globulin 3.8 g/dL (2.4-3.5); Glucose 109 mg/dL (70-105); Lipase 7 U/L (8-78); Potassium 4.1 mmol/L (3.5-5.1); Protein, Total 8.1 g/dL (6.0-8.3); Sodium 136 mmol/L (136-145)
[2021-03-19] MEDS ORDERED: Lidocaine Viscous Sol 2% 15 ml UD Cup ONE (20:53)
[2021-03-19] MEDS ORDERED: Mag-Al 1200 mg/1200 mg/30 ML UDCUP ONE (20:53)
[2021-03-19 21:23] LABS: Bacteria/HPF 2+ HPF (None Seen); Bilirubin Negative (Negative); Blood, Urine 1+ (Negative); Clarity Clear (Clear); Glucose, Urine (Dipstick) Normal (Negative); Ketone, Urine Negative (Negative); Leukocyte Negative Leu/uL (Negative); Mucous/LPF Rare LPF (<2+); Nitrite Negative (Negative); Pregnancy Test - Urine (BHCG) Negative (Negative); Pregu Control Background? CLEAR/WHITE (CLR/WHITE); Pregu Control Bar Appear? YES (CONTROL BAR); Protein, Urine (Dipstick) 70 mg/dL (Neg-Trace); Specific Gravity 1.032 (1.002-1.036); Specific Gravity, Urine 1.032 (1.002-1.036); Urobilinogen Normal mg/dL (Less than 2); pH, Urine 5.5 (5.0-9.0)
== END 2021-03-19 21:45 | disposition home or self-care (01) ==
LOC: ERS 19:22
DX: K52.9 Noninfective gastroenteritis and colitis, unspecified (principal); I10 Essential (primary) hypertension
CPT/HCPCS: 36415; 76705; 80053; 81003; 81015; 81025; 83690; 85025; 93005

== ENCOUNTER 2023-10-05 18:54 | Emergency (ER) | payer SELFPAY ==
[2023-10-05 19:42] LABS: #Eosinphils 0.1 thou/uL (0.0-0.7); #Monocytes 0.5 thou/uL (0.11-0.59); #Neutrophils 6.3 thou/uL (1.40-6.50); %Basophils 0.2 % (0.0-1.0); %Eosinophils 1.4 % (0.0-10.0); %Lymphocytes 25.5 % (21.0-51.0); %Monocytes 5.1 % (0.0-10.0); %Neutrophils 67.5 % (42.0-75.0); Hematocrit 35.8 % (36.0-47.0); Hemoglobin 11.6 g/dL (12.0-16.0); Mean Corpuscular HGB CONC 32.4 g/dL (32.0-36.0); Mean Corpuscular Hemoglobin 24.1 pg (27.0-31.0); Mean Corpuscular Volume 74.3 fl (78.0-98.0); Platelet Count 335 10x3/uL (130-400); RBC Distribution Width 16.3 % (11.5-14.5); Red Blood Cell (RBC) Count 4.82 mill/uL (4.20-5.40); White Blood Cell (WBC) Count 9.3 10x3/uL (4.8-10.8)
[2023-10-05 20:04] LABS: ALT (SGPT) 23 U/L (8-55); AST (SGOT) 35 U/L (5-34); Albumin 4.1 g/dL (3.5-5.0); Alkaline Phosphatase 119 U/L (40-110); Anion Gap 14 mmol/L (10-20); BUN (Urea Nitrogen) 8 mg/dL (7.0-18.7); Bilirubin, Total 0.8 mg/dL (0.2-1.2); Calc. Creatinine Clearance 0 mL/min (70-130); Carbon Dioxide 21 mmol/L (22-29); Chloride 102 mmol/L (98-107); Estimated GFR 102; Globulin 3.7 g/dL (2.4-3.5); Glucose 317 mg/dL (70-105); Potassium 4.4 mmol/L (3.5-5.1); Protein, Total 7.8 g/dL (6.0-8.3); Sodium 133 mmol/L (136-145)
[2023-10-05 20:07] LABS: Anisocytosis SLIGHT = 6-15 cells HPF (0-5); CellaVision Operator ID LAB.MJL; Hypochromia SLIGHT = 6-15 cells HPF (0-5); Microcytosis SLIGHT = 6-15 cells HPF (0-5); Platelet Adequacy Comment Platelets Normal; Polychromasia SLIGHT = 2-3 cells HPF (0-2)
[2023-10-05 20:17] LABS: Bacteria/HPF 4+ HPF (None Seen); Bilirubin Negative (Negative); Blood, Urine 3+ (Negative); CAUTI Indications for Culture Acute Hematuria; Clarity Turbid (Clear); Glucose, Urine (Dipstick) Greater than 1000 mg/dL (Negative); Ketone, Urine Trace mg/dL (Negative); Leukocyte 500 Leu/uL (Negative); Mucous/LPF Rare LPF (<2+); Nitrite Negative (Negative); Protein, Urine (Dipstick) 100 mg/dL (Neg-Trace); RBC/HPF Greater than 50 HPF (0-3); Specific Gravity, Urine 1.036 (1.002-1.036); Urobilinogen Normal mg/dL (Less than 2); WBC/HPF Greater than 50 HPF (0-3); pH, Urine 5.5 (5.0-9.0)
[2023-10-05 20:18] LABS: Amphetamine Not Detected (NotDetected); Barbiturates Screen Not Detected (NotDetected); Benzodiazepine Screen Not Detected (NotDetected); Cocaine Metabolite Screen Not Detected (NotDetected); Methadone Not Detected (NotDetected); Methamphetamine Not Detected (NotDetected); Opiate Screen Not Detected (NotDetected); Oxycodone Screen Not Detected (NotDetected); Phencyclidine (PCP) Not Detected (NotDetected); Pregnancy Test - Urine (BHCG) Negative (Negative); Pregu Control Background? CLEAR/WHITE (CLR/WHITE); Pregu Control Bar Appear? YES (CONTROL BAR); Specific Gravity 1.036 (1.002-1.036); THC/Cannabinoid Screen Detected (NotDetected); Tricyclic Screen Not Detected (NotDetected)
[2023-10-05 20:19] LABS: Urine Culture Reflex Yes Yes
[2023-10-05 20:45] LABS: Troponin I Less than 0.010 ng/mL (< 0.028)
== END 2023-10-05 22:05 | disposition home or self-care (01) ==
LOC: ERS 18:54
DX: N39.0 Urinary tract infection, site not specified (principal); R00.2 Palpitations; E11.9 Type 2 diabetes mellitus without complications; N94.6 Dysmenorrhea, unspecified; I10 Essential (primary) hypertension
CPT/HCPCS: 36416; 71045; 80053; 80306; 81001; 81025; 83690; 84484; 85025; 86850; 86900; 86901; 87086; 93005